=== PATIENT | male | born 1955 | race Caucasian/White ===

== ENCOUNTER 2018-09-02 13:11 | Emergency (ER) | END 2018-09-02 16:22 | disposition home or self-care (01) ==

== ENCOUNTER 2019-07-06 19:58 | Emergency (ER) | payer MEDICARE, OTHER ==
[~2019-07-06] VITALS: Ht 160 cm; Wt 85.0 kg
[~2019-07-06 19:58] MED LIST: HIV MEDS; IBUP-1542 PO; IBUP-1982; ONDA4TAB8 PO
[2019-07-06 20:03] VITALS: Ht 160 cm; Wt 85.0 kg
[2019-07-06 21:25] VITALS: BP 156/102; PULSE 77; RESP 18
[2019-07-06] MEDS ORDERED: FENTAnyl 50 MCG/ML VIAL IV ONE (21:30)
== END 2019-07-06 21:49 | disposition home or self-care (01) ==
LOC: E/R 19:58
DX: E87.6 Hypokalemia (principal); R55 Syncope and collapse; I10 Essential (primary) hypertension; R11.0 Nausea; Z21 Asymptomatic human immunodeficiency virus [HIV] infection status
CPT/HCPCS: 36415; 80048; 82962; 84484; 85025; 93005; 96374; 99284; J3010